=== PATIENT | female | born 1930 | race Caucasian/White ===

== ENCOUNTER → 2016-07-18 | Outpatient (CLI) | payer OTHER ==
[~2016-07-18] MED LIST: AMOX500C3 PO; ASPEC81 PO; ASPI81TA28 PO; ATOR-14 PO; ATOR10TA88 PO; CALCTAB7 PO; CHOL100010 PO; CLTP PO; ERGO1CAP41 PO; FLUO20CA35 PO; LACT12LO28 TOP; LANS15TA2 PO; LEVO75TA PO; METO25TA3 PO; METO25TA56 PO; MULTTAB PO; NTRGSL/4 UT; PRED-301 PO; PSYL55.43 PO; SYN75 PO
[2016-07-18 10:36] LABS: HEMATOCRIT 45.1 % (37-47); MEAN CELL VOLUME 94.7 fL (80-100); MEAN CORPUSCULAR HEMOGLOBIN 32.1 pg (25-34); MEAN CORPUSCULAR HGB CONC 33.9 g/dl (32-36); MEAN PLATELET VOLUME 10.6 fL (7.4-10.4); PLATELET COUNT 139 K/uL (130-400); RED BLOOD COUNT 4.76 M/uL (4.2-5.4); WHITE BLOOD COUNT 8.71 K/uL (4.8-10.8)
[2016-07-18 10:49] LABS: BLOOD UREA NITROGEN 12 mg/dl (7-18); BUN/CREATININE RATIO 12.2 (10-20); CALCIUM 9.1 mg/dl (8.5-10.1); CARBON DIOXIDE 30 mmol/L (21-32); CHLORIDE 102 mmol/L (98-107); CREATININE 0.96 mg/dl (0.60-1.20); GLUCOSE 109 mg/dl (70-99); SODIUM 140 mmol/L (136-145)
[2016-07-18 10:59] LABS: CHOLESTEROL 160 mg/dl (0-200); CHOLESTEROL/HDL RATIO 2.2; HDL CHOLESTEROL 73 mg/dl; LDL CHOLESTEROL CALCULATED 61 mg/dl; TRIGLYCERIDES 132 mg/dl (0-150); VERY LOW DENSITY LIPOPROT CALC 26 mg/dl
== END ==
LOC: C.LABVPSUW 09:12
PROVIDERS: ATTEND Nurse Practitioner
DX: I10 Essential (primary) hypertension (principal); E03.9 Hypothyroidism, unspecified; D64.9 Anemia, unspecified

== ENCOUNTER 2016-07-30 14:29 | Emergency (ER) | payer OTHER ==
[~2016-07-30] VITALS: Ht 154.9 cm; Wt 68.9 kg
[~2016-07-30 14:29] MED LIST changes: -AMOX500C3 PO; -ASPI81TA28 PO; -ATOR10TA88 PO; -CALCTAB7 PO; -ERGO1CAP41 PO; -LACT12LO28 TOP; -LEVO75TA PO; -METO25TA3 PO; -MULTTAB PO; -PRED-301 PO
[2016-07-30 14:33] VITALS: TEMP 36.8; Ht 154.9 cm; Wt 68.9 kg
[2016-07-30] MEDS ORDERED: SODIUM CHLORIDE 0.9% 500ML 500 ML IV STA (16:06)
[2016-07-30] MEDS ORDERED: ASPI81TA28 PO (16:06)
[2016-07-30] MEDS ORDERED: METO25TA3 PO (16:06)
[2016-07-30] MEDS ORDERED: ACETAMINOPHEN 500 MG TAB PO STA (16:06)
[2016-07-30] MEDS ORDERED: LEVO75TA PO (16:06)
[2016-07-30] MEDS ORDERED: PRED-301 PO (16:06)
[2016-07-30] MEDS ORDERED: ERGO1CAP41 PO (16:06)
[2016-07-30] MEDS ORDERED: CALCTAB7 PO (16:06)
[2016-07-30] MEDS ORDERED: LACT12LO28 TOP (16:06)
[2016-07-30] MEDS ORDERED: ATOR10TA88 PO (16:06)
[2016-07-30 16:32] LABS: BASO % 0.1 %; BASO ABS # 0.01 K/uL (0-0.2); COMPLETE YES; EOS % 0.8 %; HEMATOCRIT 41.6 % (37-47); IG% 0.3 %; LYMPH % 13.5 %; LYMPH ABS # 1.32 K/uL (1.2-3.4); MEAN CELL VOLUME 94.5 fL (80-100); MEAN CORPUSCULAR HEMOGLOBIN 32.5 pg (25-34); MEAN CORPUSCULAR HGB CONC 34.4 g/dl (32-36); MEAN PLATELET VOLUME 9.7 fL (7.4-10.4); MONO % 8.3 %; PLATELET COUNT 105 K/uL (130-400); WHITE BLOOD COUNT 9.77 K/uL (4.8-10.8)
--- NOTE | 2016-07-30 16:40 | DIAGNOSTIC IMAGING REPORT ---
CHEST ONE VIEW PORTABLE CLINICAL HISTORY: Generalized Weakness dyspnea COMPARISON STUDY: 10/15/2013 FINDINGS: Chronic elevation right hemidiaphragm. Lungs are clear. Prior median sternotomy. IMPRESSION: Chronic elevation right hemidiaphragm. No acute process. Electronically signed by: Koby Addison M.D. 07/30/2016 4:39 PM Dictated Date/Time: 07/30/2016 4:38 PM
--- NOTE | 2016-07-30 17:01 | EMERGENCY ROOM VISIT NOTE ---
History Report prepared by Cassandra: James Wolf Under the Supervision of: Dr. Harvey Machado M.D. First contact with patient: 15:58 Chief Complaint: LEG PAIN,LEG INJURY Stated Complaint: HEART ISSUES, PACEMAKER, AND RESPIRATORY ILLNESS History of Present Illness The patient is an 85 year old female who presents to the Emergency Room with complaints of worsening cold-like symptoms for the past week. She complains of cough, shortness of breath with exertion, diarrhea, runny nose, weakness and diffuse body aches. She notes that she has had cold-like symptoms for most of the winter; however, they have been worsening over the past few days. She notes her cough, shortness of breath, and diarrhea symptoms worsened last week. Then over the past 3 days she has been feeling weaker than usual and started having diffuse body aches. She presented to the ED today for further evaluation for her cough and weakness. She denies fevers, chest pain, rashes, new swelling in legs, headache, neck pain, or fall/injury at this time. She notes that her Mobile Designer recently told her that her aortic valve is slowly failing. Source of History: patient Onset: the past week Position: other (global) Timing: worsening Associated Symptoms: + SOB (with exertion), + cough, + diarrhea, + weakness , No chest pain, No fevers, No headache, No neck pain, No rash Note: Other associated symptoms: runny nose, diffuse body aches denies: new swelling in legs, fall/injury at this time Review of Systems See HPI for pertinent positives & negatives. A total of 10 systems reviewed and were otherwise negative. Past Medical & Surgical Medical Problems: (1) Cardiac Pacemaker In Situ (2) Diverticulosis Colon (W/O Ment Of Hemorrhage) (3) Hyperlipidemia Nec/Nos (4) Hypertension Nos (5) Hypertension Nos (6) Long-Term (Current) Use Of Aspirin Family History Diabetes mellitus FH: cancer FH: gallbladder disease FH: heart disease Hypertension Kidney disease Kidney stones Social History Smoking Status: Former Smoker Alcohol Use: none Housing Status: lives alone Occupation Status: unemployed Current/Historical Medications Scheduled Amoxicillin (Amoxil), 2,000 MG PO PRN/UD Aspirin (Aspirin Ec), 81 MG PO DAILY Atorvastatin (Lipitor), 10 MG PO DAILY Calcium Carbonate-Vitamin D W/ (Caltrate 600 Plus), 1 TAB PO BID Ergocalciferol (Vitamin D 98440 Unit), 1 TAB PO QOWEEK Fluoxetine (Prozac), 20 MG PO DAILY Lansoprazole (Prevacid Solutab), 15 MG PO DAILY Levothyroxine Sodium (Synthroid), 75 MCG PO DAILY Metoprolol Succ (Toprol Xl) (Toprol-Xl), 25 MG PO DAILY Multivitamins/Minerals (Mvi With Minerals), 1 TABLET PO Q2D Nitroglycerin (Nitrostat), 0.4 MG UT PRN Prednisone (Prednisone), 5 MG PO DAILY Scheduled PRN Lactic Acid (Ammonium Lactate) (Ammonium Lactate), 1 APPLN TOP DAILY PRN for ARMS,LEGS Allergies Coded Allergies: Sertraline (Unverified Allergy, Mild, DIARRHEA, 07/14/09) Codeine (Unverified Allergy, Unknown, UNKNOWN, 07/14/09) Lovastatin (Unverified Allergy, Unknown, UNKNOWN, 07/14/09) Morphine (Verified Allergy, Unknown, UNKNOWN, 07/30/16) Sulfa Antibiotics (Verified Allergy, Unknown, UNKNOWN, 07/30/16) INFFO FROM [facility] Trimethoprim (Unverified Allergy, Unknown, UNKNOWN, 07/14/09) Citalopram (Verified Adverse Reaction, Unknown, felt poorly, 07/30/16) INFO FROM [facility] Physical Exam Vital Signs Date Time Temp Pulse Resp B/P Pulse Ox O2 Delivery O2 Flow Rate FiO2 07/30/16 17:55 72 18 127/62 95 Room Air 07/30/16 16:20 72 143/91 97 Room Air 07/30/16 14:33 36.8 80 18 136/71 94 Room Air Physical Exam GENERAL: Patient is well appearing and in minimal distress. Difficulty with sitting up due to weakness. HEENT: No acute trauma, normocephalic atraumatic, dry mucous membranes, no nasal congestion, no scleral icterus. NECK: No stridor, no adenopathy, no meningismus, trachea is midline. LUNGS: Crackles to bilateral bases. HEART: Regular rate and rhythm. Systolic murmur. ABDOMEN: Soft, nontender, bowel sounds positive, no masses appreciated, no peritonitis. BACK: No midline tenderness, no CVA tenderness EXTREMITIES: Normal motion all extremities, no cyanosis, trace edema in ankles. NEUROLOGIC: Alert and oriented, no acute motor or sensory deficits, no focal weakness, cranial nerves grossly intact. SKIN: No rash, no jaundice, no diaphoresis. Medical Decision & Procedures ER Provider Diagnostic Interpretation: X ray results are stated below per my interpretation and the radiologist's interpretation. CHEST ONE VIEW PORTABLE CLINICAL HISTORY: Generalized Weakness dyspnea COMPARISON STUDY: 10/15/2013 FINDINGS: Chronic elevation right hemidiaphragm. Lungs are clear. Prior median sternotomy. IMPRESSION: Chronic elevation right hemidiaphragm. No acute process. Electronically signed by: Koby Addison M.D. 07/30/2016 4:39 PM Dictated Date/Time: 07/30/2016 4:38 PM Laboratory Results 07/30/16 16:15 Red Blood Count 4.40, Mean Corpuscular Volume 94.5, Mean Corpuscular Hemoglobin 32.5, Mean Corpuscular Hemoglobin Concent 34.4, Mean Platelet Volume 9.7, Neutrophils (%) (Auto) 77.0, Lymphocytes (%) (Auto) 13.5, Monocytes (%) (Auto) 8.3, Eosinophils (%) (Auto) 0.8, Basophils (%) (Auto) 0.1, Neutrophils # (Auto) 7.52, Lymphocytes # (Auto) 1.32, Monocytes # (Auto) 0.81, Eosinophils # (Auto) 0.08, Basophils # (Auto) 0.01 07/30/16 16:15 Test 07/30/16 16:15 07/30/16 17:05 White Blood Count 9.77 K/uL (4.8-10.8) Red Blood Count 4.40 M/uL (4.2-5.4) Hemoglobin 14.3 g/dL (12.0-16.0) Hematocrit 41.6 % (37-47) Mean Corpuscular Volume 94.5 fL (80-100) Mean Corpuscular Hemoglobin 32.5 pg (25-34) Mean Corpuscular Hemoglobin Concent 34.4 g/dl (32-36) Platelet Count 105 K/uL (130-400) Mean Platelet Volume 9.7 fL (7.4-10.4) Neutrophils (%) (Auto) 77.0 % Lymphocytes (%) (Auto) 13.5 % Monocytes (%) (Auto) 8.3 % Eosinophils (%) (Auto) 0.8 % Basophils (%) (Auto) 0.1 % Neutrophils # (Auto) 7.52 K/uL (1.4-6.5) Lymphocytes # (Auto) 1.32 K/uL (1.2-3.4) Monocytes # (Auto) 0.81 K/uL (0.11-0.59) Eosinophils # (Auto) 0.08 K/uL (0-0.5) Basophils # (Auto) 0.01 K/uL (0-0.2) RDW Standard Deviation 44.4 fL (36.4-46.3) RDW Coefficient of Variation 12.8 % (11.5-14.5) Immature Granulocyte % (Auto) 0.3 % Immature Granulocyte # (Auto) 0.03 K/uL (0.00-0.02) Erythrocyte Sedimentation Rate 11 mm/hr (0-21) Prothrombin Time 10.6 SECONDS (9.0-12.0) Prothromb Time International Ratio 1.0 (0.9-1.1) Activated Partial Thromboplast Time 26.7 SECONDS (21.0-31.0) Partial Thromboplastin Ratio 1.0 Anion Gap 8.0 mmol/L (3-11) Est Creatinine Clear Calc Drug Dose 39.1 ml/min Estimated GFR () 66.6 Estimated GFR (Non- 57.5 BUN/Creatinine Ratio 14.6 (10-20) Calcium Level 8.2 mg/dl (8.5-10.1) Phosphorus Level 2.4 mg/dl (2.5-4.9) Magnesium Level 1.9 mg/dl (1.8-2.4) Total Bilirubin 1.0 mg/dl (0.2-1) Direct Bilirubin 0.2 mg/dl (0-0.2) Aspartate Amino Transf (AST/SGOT) 26 U/L (15-37) Alanine Aminotransferase (ALT/SGPT) 20 U/L (12-78) Alkaline Phosphatase 51 U/L (45-117) Total Creatine Kinase 50 U/L (26-192) Creatine Kinase MB 1.2 ng/ml (0.5-3.6) Creatine Kinase MB Ratio 2.4 (0-3.0) Troponin I < 0.015 ng/ml (0-0.045) C-Reactive Protein 1.28 mg/dl (0-0.29) Total Protein 6.4 gm/dl (6.4-8.2) Albumin 3.4 gm/dl (3.4-5.0) Lipase 165 U/L (73-393) Influenza Type A Antigen Neg for Influ A (NEG) Influenza Type B Antigen Neg for Influ B (NEG) Urine Color YELLOW Urine Appearance CLEAR (CLEAR) Urine pH 5.0 (4.5-7.5) Urine Specific [place] 1.002 (1.000-1.030) Urine Protein NEG (NEG) Urine Glucose (UA) NEG (NEG) Urine Ketones NEG (NEG) Urine Occult Blood 1+ (NEG) Urine Nitrite NEG (NEG) Urine Bilirubin NEG (NEG) Urine Urobilinogen NEG (NEG) Urine Leukocyte Esterase TRACE (NEG) Urine WBC (Auto) 1-5 /hpf (0-5) Urine RBC (Auto) 0-4 /hpf (0-4) Urine Hyaline Casts (Auto) 0 /lpf (0-5) Urine Epithelial Cells (Auto) 10-20 /lpf (0-5) Urine Bacteria (Auto) NEG (NEG) Laboratory results as reviewed by me. Medications Administered Medications (Trade) Dose Ordered Sig/Saleem Route Start Time Stop Time Status Last Admin Dose Admin Sodium Chloride (Nss 500ml) 500 ml @ 999 mls/hr Q31M STAT IV 07/30/16 16:06 07/30/16 16:36 DC 07/30/16 16:18 999 MLS/HR Acetaminophen (Tylenol Tab) 1,000 mg NOW STAT PO 07/30/16 16:06 07/30/16 16:09 DC 07/30/16 16:18 1,000 MG ECG Indication: other Rate (beats per minute): 69 Rhythm: other (atrial-sensed ventricular rhythm) Findings: no acute ischemic change, no ectopy ED Course 1604: The patient was evaluated in room C2. A complete history and physical exam was performed. 1606: Ordered Tylenol Tab 1000 mg PO, NSS 500 ml IV. 1716: Reevaluated the patient. Discussed results and discharge instructions: She verbalized understanding and agreement. The patient is ready for discharge. Medical Decision Differential: Sepsis, Infectious (UTI/Pneumonia/Meningitis/etc), Metabolic/ Electrolyte Abnormality, Cardiac, Hepatic, Endocrine, Toxicologic, Neurologic, amongst other pathologies entertained. 85 yr old female arrives with complaint of cough, runny nose, diarrhea, nausea, body aches. Mildly worsened over last few days though notes URI for last few weeks. CXR unremarkable. EKG/Trop unremarkable. BMP OK as is CBC. She was given IV fluids and walking around in no distress. She is stable and without complaints. No evidence of sepsis, ACS, Neurologic issues. Abdomen is benign. Breathing comfortably in no distress. Vitals unremarkable. No indication for admission at this time. Discussed symptoms to monitor for at home requiring emergent return. Impression Primary Impression: Viral upper respiratory illness Additional Impressions: Body aches Diarrhea Dehydration Scribe Attestation The scribe's documentation has been prepared under my direction and personally reviewed by me in its entirety. I confirm that the note above accurately reflects all work, treatment, procedures, and medical decision making performed by me. Departure Information Dispostion Home / Self-Care Referrals [facility] (PCP) Forms HOME CARE DOCUMENTATION FORM, IMPORTANT VISIT INFORMATION Patient Instructions ED Dehydration, My [facility] Problem Qualifiers Additional Impressions: Diarrhea Diarrhea type: infectious Qualified Codes: A09 - Infectious gastroenteritis and colitis, unspecified
[2016-07-30 17:03] LABS: ALT/SGPT 20 U/L (12-78); AST/SGOT 26 U/L (15-37); BLOOD UREA NITROGEN 13 mg/dl (7-18); BUN/CREATININE RATIO 14.6 (10-20); C-REACTIVE PROTEIN 1.28 mg/dl (0-0.29); CALCIUM 8.2 mg/dl (8.5-10.1); CARBON DIOXIDE 28 mmol/L (21-32); CHLORIDE 103 mmol/L (98-107); GLUCOSE 96 mg/dl (70-99); MAGNESIUM 1.9 mg/dl (1.8-2.4); POTASSIUM 3.9 mmol/L (3.5-5.1); SODIUM 139 mmol/L (136-145)
[2016-07-30 17:05] LABS: ALKALINE PHOSPHATASE 51 U/L (45-117); CKMB/CK RATIO 2.4 (0-3.0); PHOSPHORUS 2.4 mg/dl (2.5-4.9)
[2016-07-30 17:06] LABS: PROTHROMBIN TIME (PATIENT) 10.6 SECONDS (9.0-12.0)
[2016-07-30 17:23] LABS: URINE APPEARANCE CLEAR (CLEAR); URINE BILIRUBIN NEG (NEG); URINE COLOR YELLOW; URINE NITRITE NEG (NEG); URINE SPECIFIC GRAVITY 1.002 (1.000-1.030); UROBILINOGEN NEG (NEG); ZZUR CULT IF INDIC CLEAN CATCH NO
[2016-07-30 17:31] LABS: MANUAL MICROSCOPIC REQUIRED? NO; REVIEW REQ? NO
[2016-07-30 17:55] VITALS: BP 127/62; PULSE 72; O2SAT 95
[2016-07-30] MEDS ORDERED: AMOX500C3 PO (18:17)
[2016-07-30] MEDS ORDERED: MULTTAB PO (18:17)
== END 2016-07-30 17:55 | disposition home or self-care (01) ==
LOC: C.EDB 14:31 → C.EDC 17:55
DX: A09 Infectious gastroenteritis and colitis, unspecified (principal); J06.9 Acute upper respiratory infection, unspecified; E86.0 Dehydration; Z95.0 Presence of cardiac pacemaker; E78.5 Hyperlipidemia, unspecified; I10 Essential (primary) hypertension; Z79.82 Long term (current) use of aspirin; Z82.49 Family history of ischemic heart disease and other diseases of the circulatory system; Z83.3 Family history of diabetes mellitus; Z87.891 Personal history of nicotine dependence; Z79.899 Other long term (current) drug therapy

== ENCOUNTER → 2016-09-10 | Outpatient (CLI) | payer OTHER ==
[~2016-09-10] MED LIST changes: +AMOX500C3 PO; -ASPEC81 PO; +ASPI81TA28 PO; -ATOR-14 PO; +ATOR10TA82 PO; +CALCTAB7 PO; -CHOL100010 PO; -CLTP PO; +ERGO500011 PO; +LACT12LO28 TOP; +LEVO75TA PO; +METO25TA3 PO; -METO25TA56 PO; +MULTTAB PO; +PRED-301 PO; -PSYL55.43 PO; -SYN75 PO
== END | disposition home or self-care (01) ==
LOC: C.LABVPSUW 09:40
PROVIDERS: ATTEND Internal Medicine Critical Care Medicine
DX: M35.3 Polymyalgia rheumatica (principal)

== ENCOUNTER → 2016-12-05 | Outpatient (CLI) | payer OTHER ==
[~2016-12-05] MED LIST changes: -ATOR10TA82 PO; +ATOR10TA88 PO; +ERGO1CAP41 PO; -ERGO500011 PO
== END | disposition home or self-care (01) ==
LOC: C.LABVPSUW 09:41
PROVIDERS: ATTEND Nurse Practitioner
DX: E55.9 Vitamin D deficiency, unspecified (principal); Z95.0 Presence of cardiac pacemaker

== ENCOUNTER → 2017-06-11 | Outpatient (CLI) | payer OTHER ==
[~2017-06-11] MED LIST changes: +ATOR10TA82 PO; -ATOR10TA88 PO; -ERGO1CAP41 PO; +ERGO500011 PO
== END | disposition home or self-care (01) ==
LOC: C.LABVPSUW 08:56
PROVIDERS: ATTEND Nurse Practitioner
DX: L85.9 Epidermal thickening, unspecified (principal)

== ENCOUNTER → 2018-01-20 | Day surgery (SDC) | payer OTHER ==
[~2018-01-20] VITALS: Ht 157.5 cm; Wt 68.0 kg
[~2018-01-20] MED LIST changes: +FENTANYL CITRATE INJ 50 MCG/1 ML 2 ML VIAL ONE; +LACTATED RINGER'S 1000ML 1,000 ML IV SCH; +LIDOCAINE HCL 1% 20 ML VIAL ONE; +MIDAZOLAM HCL 1 MG/ML 2ML VIAL ONE
[2018-01-20] MEDS: CEFAZOLIN 1000MG IV PUSH 7.5 ML IV SCH ×2 (06:00→09:37)
[2018-01-20 07:13] VITALS: BP 158/84; PULSE 68; TEMP 36.7; O2SAT 96; Ht 157.5 cm; Wt 68.0 kg
--- NOTE | 2018-01-20 08:14 | History and Physical ---
History & Physical Date Jan 20, 2018. Chief Complaint sob History of Present Illness The patient is a 87 year old female with complaints of SOB Past Medical/Surgical History Medical Problems: (1) Cardiac Pacemaker In Situ (2) Diverticulosis Colon (W/O Ment Of Hemorrhage) (3) Hyperlipidemia Nec/Nos (4) Hypertension Nos (5) Hypertension Nos (6) Long-Term (Current) Use Of Aspirin Additional History Hepatic Disease: No Endocrine Disorder: Yes Kidney Disease: Yes Hypertension: Yes Heart Disease: Yes Bleeding Tendencies: No Infectious Diseases: No Allergies Coded Allergies: Sertraline (Unverified Allergy, Mild, DIARRHEA, 01/20/18) Codeine (Unverified Allergy, Unknown, UNKNOWN, 01/20/18) Lovastatin (Unverified Allergy, Unknown, UNKNOWN, 01/20/18) Morphine (Verified Allergy, Unknown, UNKNOWN, 01/20/18) Sulfa Antibiotics (Verified Allergy, Unknown, UNKNOWN, 01/20/18) INFFO FROM [facility] Trimethoprim (Unverified Allergy, Unknown, UNKNOWN, 01/20/18) Citalopram (Verified Adverse Reaction, Unknown, felt poorly, 07/30/16) INFO FROM [facility] Home Medications Scheduled Amoxicillin (Amoxil), 2,000 MG PO PRN/UD Aspirin (Aspirin Ec), 81 MG PO DAILY Atorvastatin (Lipitor), 10 MG PO DAILY Ergocalciferol (Vitamin D 51283 Unit), 1 TAB PO QOWEEK Fluoxetine (Prozac), 20 MG PO DAILY Lansoprazole (Prevacid Solutab), 15 MG PO DAILY Levothyroxine Sodium (Synthroid), 75 MCG PO DAILY Metoprolol Succ (Toprol Xl) (Toprol-Xl), 25 MG PO DAILY Multivitamins/Minerals (Mvi With Minerals), 1 TABLET PO Q2D Nitroglycerin (Nitrostat), 0.4 MG UT PRN Prednisone (Prednisone), 5 MG PO DAILY Scheduled PRN Lactic Acid (Ammonium Lactate) (Ammonium Lactate), 1 APPLN TOP DAILY PRN for ARMS,LEGS Physical Examination Skin: warm/dry, no rash Eyes: EOMI Head: normocephalic, atraumatic Neck: supple Respiratory/Chest: lungs clear, normal breath sounds Cardiovascular: regular rate, rhythm, no edema, + systolic murmur Abdomen / GI: normal bowel sounds, non tender Back: normal inspection Extremities: normal inspection Neurologic/Psych: alert, oriented x 3 Diagnosis Impression; 1. ppm at bharti 2. CHB s/p ppm 2005 3. s/p AVR 2005 4. CAD s/p CABG HARRY-LAD, SVG-RCA 2005 5. CKD stage III 6. Hypothyroidism 7. PMR on low dose prednisone 8. H/o squamous cell CA 9. Depression 10. OA 11. IBS ASA Classification: ASA Class II Plan of Treatment dual chamber pacemaker generator change; rediscussed the procedure and potential risks with the patient today and consent signed
--- NOTE | 2018-01-20 08:15 | Pre Sedation Assessment ---
Pre Sedation Assessment General Date of Sedation: Jan 20, 2018. Vital Signs Past 12 Hours Date Time Temp Pulse Resp B/P (MAP) Pulse Ox O2 Delivery O2 Flow Rate FiO2 01/20/18 07:13 36.7 68 20 158/84 (108) 96 Room Air Review Cardiovascular: regular rate, rhythm, + systolic murmur Lungs: lungs clear Pre-Sedation Airway Assessment Smoking Status: Never Smoker Hx of Sleep Apnea: No Oral Cavity: Dentures Mallampati Classification: Class II ASA Classification: Class II NPO Status Date of Last Intake of Fluids: Jan 19, 2018 Time of Last Intake of Fluids: 1899 Date of Last Intake of Solids: Jan 19, 2018 Time of Last Intake of Solids: 1899 Procedure Planning Contraindications for Sedation: None Current Medications Reviewed: Yes Notes The planned sedation has been discussed with the patient. Informed Consent was obtained. I have identified the patient, determined the appropriateness of sedation and have assessed the patient immediately prior to the procedure. All medicine(s) and interventions are by my order.
--- NOTE | 2018-01-20 09:09 | Post Sedation Assessment ---
Post Sedation Assessment General Date of Sedation Jan 20, 2018. Vital Signs: Vital Signs Past 12 Hours Date Time Temp Pulse Resp B/P (MAP) Pulse Ox O2 Delivery O2 Flow Rate FiO2 01/20/18 07:13 36.7 68 20 158/84 (108) 96 Room Air Post Procedure Recovery Score Activity: (2) Moves 4 extremities * Respiration: (2) Deep breath/cough Circulation: (2) +/-20% PreAnes Value Consciousness: (2) Fully Awake Oxygen Saturation: (2) > 92% On Room Air Post Anesthesia Score: 10 Discharge Sedation Level of Care: Fast Track Phase II Post Sedation Plan On clinical assessment, the patient appears to have tolerated the sedation without complications. Patient is recovering as anticipated. Patient will continue to be monitored by nursing and may be discharged when sedation discharge criteria are met per below protocol. Upon Completions of procedure and additional 15 minutes continue every 5 minute vital signs and the P.A.R. score; then discharge to a Phase I or Fast Track to Phase II per the following guidelines: * Discharge Patient to appropriate Phase II area if PAR is 8 or greater or return to pre- procedure baseline. The post - procedure orders will be as directed. * If PAR score is less than 8 or not return to pre-procedure baseline then patient will follow Phase I monitoring till PAR is reached for Phase II. The Phase I may be done in procedure room or may call to secure a Phase I area. * If naloxone or flumazenil are used for reversal, hold in Phase I for an additional 60 -120 minutes before discharge to Phase II. Please call the Sedation Physician to re-evaluate and complete post-note for discharge to Phase II area. Do NOT discharge from procedure sedation or Phase 1 until post- sedation evaluation note is complete by procedure /sedation MD Sedation Discharge Instructions to be given to the patient at discharge to home.
--- NOTE | 2018-01-20 09:10 | [facility] Post Operative Brief Note ---
Immediate Operative Summary Operative Date Jan 20, 2018. Pre-Operative Diagnosis chb, ppm at bharti Post-Operative Diagnosis same Procedure(s) Performed dual chamber rate responsive permanent pacemaker generator change Surgeon alma jacobs Database Support Surgeon(s) none Estimated Blood Loss <5cc Findings See Below see official report Fluids (cc crystalloids) 115 Specimens none Drains None Anesthesia Type IV Sedat Cons RN Only Complication(s) none Disposition Accompanied Pt To Recover: yes Disposition: same day surgery Overlapping Procedure I was present for: the critical portions of procedure. I was immediately available: during the entire case Back up surgeon: was not required during procedure
--- NOTE | 2018-01-20 09:13 | Discharge Instructions ---
Discharge Instructions Date of Service Jan 20, 2018. Visit Reason for Visit: Complete Heart Block, [id number] Life Discharge Discharge Diagnosis / Problem: ppm at bharti s/p generator change Discharge Goals Goal(s): Improve function Activity Recommendations Activity Limitations: resume your previous activity Lifting Limitations: none Shower/Bathe: tomorrow Anesthesia . Post Anesthesia Instructions: If you have had General Anesthesia or IV Sedation: * Do not drive today. * Resume driving when surgeon permits. * Do not make important decisions or sign legal documents today. * Call surgeon for: 1. Temperature elevations greater than 101 degrees F. 2. Uncontrollable pain. 3. Excessive bleeding. 4. Persistent nausea and vomiting. 5. Medication intolerance (nausea, vomiting or rash). * For nausea and vomiting use only clear liquids such as: tea, soda, bouillon until nausea subsides, then gradually increase diet as tolerated. * If you have any concerns or questions, call your surgeon's office. If physician is unavailable and it is an emergency, call 911 or go to the nearest emergency room. . Instructions / Follow-Up Instructions / Follow-Up ACTIVITY RECOMMENDATIONS: NONE SPECIAL CARE INSTRUCTIONS: * If bleeding occurs, apply direct pressure to area for 5 minutes. * Call your doctor if you have severe pain, fever, drainage or bleeding at site. * Keep dry for 24 hours. * Keep any scheduled doctor's appointment. * Implant Card - hand held device with website information given. SKIN IRRITATION: * You may experience some redness and/or swelling in the area where radiation was administered. If any skin irritation occurs, please contact your family physician. FOLLOW UP VISIT: Keep any scheduled doctor appointments. Diet Recommendations Recommended Home Diet: resume previous diet Procedures Procedures Performed: dual chamber rate responsive permanent pacemaker generator change Pending Studies Studies pending at discharge: no Medical Emergencies . Who to Call and When: Medical Emergencies: If at any time you feel your situation is an emergency, please call 911 immediately. . Non-Emergent Contact Non-Emergency issues call your: Education Faculty Member . . "Provider Documentation" section prepared by Annia Srivastava. .
[2018-01-20 09:23] VITALS: BP 143/67; PULSE 62; TEMP 36.6; O2SAT 93
[2018-01-20 09:50] VITALS: BP 126/76; PULSE 60; TEMP 36.6; O2SAT 96
[2018-01-20 10:17] VITALS: BP 140/83; PULSE 72; TEMP 36; O2SAT 94
--- NOTE | 2018-01-20 12:31 | OPERATIVE REPORT ---
DATE OF OPERATION: 01/20/2018 PREOPERATIVE DIAGNOSES: Complete heart block and pacemaker at elective replacement indicator. POSTOPERATIVE DIAGNOSES: Complete heart block and pacemaker at elective replacement indicator. PROCEDURE: Dual-chamber rate responsive pacemaker generator change. SURGEON: Annia Srivastava M.D. RELOCATION ASSOCIATE: None. ANESTHESIA: Moderate conscious sedation administered under my supervision by Redd Emanuel. Start time 08:39 and end time 09:05. A total of 1 mg of Versed, 25 mcg of fentanyl. IV FLUIDS: 150 mL. ANTIBIOTICS: 1 gram of Ancef. URINE OUTPUT: Not applicable. SPECIMENS: None. FINDINGS: See below. DRAINS: None. INDICATIONS: This is an 87-year-old female with a past medical history for complete heart block where she underwent a dual-chamber pacemaker in 2005, aortic stenosis, status post AVR in 2005, coronary artery disease, status post CABG with HARRY to LAD and SVG to RCA in 2005, chronic kidney disease stage III, hypothyroidism, PMR on low-dose prednisone, history of squamous cell carcinoma, depression, osteoarthritis, and IBS. At her most recent device check she was found to hit [facility] on 01/12/2018 and was recommended a generator change. CONSENT: Consent was obtained prior to the patient going into electrophysiology lab. Patient was informed of risks, benefits, alternatives of procedure. Risks include but not limited to sudden cardiac , cardiac arrhythmias, cerebrovascular accident, myocardial infarction, bleeding and infection. Patient understood these risks and agreed to the procedure as planned. Informed consent was obtained. DESCRIPTION OF THE PROCEDURE: Patient was brought into the electrophysiology lab in a fasting state. She was connected to continuous bus monitor. Timeout was performed to ensure patient identity and procedure correctly. Patient was prepped and draped over the left infraclavicular space in normal surgical standard fashion. Monitored conscious sedation was given throughout the procedure for patient's comfort level. [place] precautions were maintained throughout the procedure. A 20 mL of 1% lidocaine, bupivacaine mixture were given over the prior surgical incision. Incision was made over the prior surgical incision. Blunt dissection was performed down to the pulse generator. The capsule was freed using iris scissors and then the pulse generator was freed from the capsule and removed from the body. Since the patient was in complete heart block, I opted to once I disconnected the right ventricular lead, I connected it right to new device and then did the same with the right atrial lead making sure that the pins were in appropriate position, passed set screws and set screws were tightened. We then checked the leads to the device intraoperatively, see below for results. The capsule was disrupted inferiorly and caudally to allow for new blood flow. The pocket was then flushed with copious amounts of bacitracin and saline wash and inspected for hemostasis. The pulse generator was then placed in the pocket, making sure that the leads were lying flat beneath the device. Incision was closed in a 3-layer fashion using 2-0 Vicryl interrupted suture followed by a 3-0 Vicryl interrupted suture followed by a 4-0 Monocryl running stitch and Dermabond was applied. EQUIPMENT: 1. Explanted generator is a [employer] SDR [id number] , serial number #[id number], implanted 04/25/2006, [facility] on 01/12/2018 with a voltage of 2.63 volts. 2. The new pulse generator is a [employer] [place] XT DR JASMINA Bonilla, [id number], serial # [id number]. 3. Right atrial lead 5076-45 cm, serial #[id number], implanted 04/25/2006. 4. Right ventricular lead 5076-52 cm, serial #[id number], implanted 04/25/2006. Intraoperative testing which was again done through the new device is as follows: 1. Right atrial lead: P-wave 0.9 millivolts, impedance 513 ohms, threshold 1.25 volts. 2. Right ventricular lead: No R-waves as patient has complete heart block. Impedance 684 ohms, threshold 0.5 volts. FINAL PARAMETERS: DDDR 60/110. Right atrial amplitude 2.5 volts, pulse width 0.4 milliseconds, sensitivity 0.3 millivolts. Right ventricular amplitude 2 volts, pulse width 0.4 milliseconds, sensitivity 1.2 millivolts. IMPRESSION: Successful rate responsive dual-chamber permanent pacemaker generator change secondary to complete heart block and pacemaker at elective replacement indicator. PLAN: Monitor patient post-sedation. She can shower tomorrow, let water on incision, do not scrub it. She can continue her home medications and she should follow up in our device clinic at [facility] for device and wound check in 1 week's time. I attest to the content of the Intraoperative Record and any orders documented therein. Any exception s are noted below.
== END | disposition home or self-care (01) ==
LOC: C.ACU 06:40
PROVIDERS: ATTEND Internal Medicine
DX: I44.2 Atrioventricular block, complete (principal); E78.5 Hyperlipidemia, unspecified; F32.9 Major depressive disorder, single episode, unspecified; E03.9 Hypothyroidism, unspecified; I10 Essential (primary) hypertension; Z95.0 Presence of cardiac pacemaker; Z88.8 Allergy status to other drugs, medicaments and biological substances; Z88.2 Allergy status to sulfonamides; Z88.5 Allergy status to narcotic agent; Z79.899 Other long term (current) drug therapy; Z79.82 Long term (current) use of aspirin; I25.10 Atherosclerotic heart disease of native coronary artery without angina pectoris; Z95.5 Presence of coronary angioplasty implant and graft